=== PATIENT | male | born 1980 | race Caucasian/White ===

== ENCOUNTER 2016-09-16 17:50 | Emergency (ER) | payer MEDICAID, OTHER ==
[~2016-09-16] VITALS: Ht 170.2 cm; Wt 99.8 kg
[2016-09-16 18:04] VITALS: BP 132/68
--- NOTE | 2016-09-16 18:08 | NUR ---
Patient ambulated to bed 03.
--- NOTE | 2016-09-16 18:12 | NUR ---
Dr. Bustamante evaluating patient at bedside.
--- NOTE | 2016-09-16 18:12 | NUR ---
PATIENT PRESENTS TO ED WITH throat pain , epigastric burning pain and sensation of sob . PT STATES . DENIES N/V/D; SKIN IS PINK/WARM/DRY; AAOX4 WITH EVEN AND STEADY GAIT; LUNGS CLEAR BL; HR EVEN AND REGULAR; PT DENIES ANY FEVER, CP, SOB, OR COUGH AT THIS TIME; PATIENT STATES PAIN OF 6/10 AT THIS TIME; VSS; PATIENT POSITIONED FOR COMFORT; HOB ELEVATED; BEDRAILS UP X2; BED DOWN. ER MD MADE AWARE OF PT STATUS.
[2016-09-16] MEDS ORDERED: DEXAMETHASONE 10 MG/ML VIAL IM ONE (18:15)
--- NOTE | 2016-09-16 18:23 | NUR ---
pt to x-ray via wheel chair
--- NOTE | 2016-09-16 18:37 | NUR ---
Patient back from CT/XRAY via wheelchair per tech.
--- NOTE | 2016-09-16 18:38 | NUR ---
returned from x-ray
--- NOTE | 2016-09-16 19:14 | NUR ---
Patient discharged with v/s stable. Written and verbal after care instructions given and explained. Patient alert, oriented and verbalized understanding of instructions. Ambulatory with steady gait. All questions addressed prior to discharge. ID band removed. Patient advised to follow up with PMD. Rx of clindamycin given. Patient educated on indication of medication including possible reaction and side effects. Opportunity to ask questions provided and answered.
[2016-09-16 19:15] VITALS: BP 128/88
== END 2016-09-16 19:14 | disposition home or self-care (01) ==
LOC: MED 17:50
DX: R06.00 Dyspnea, unspecified (principal); R03.0 Elevated blood-pressure reading, without diagnosis of hypertension; J02.9 Acute pharyngitis, unspecified; F17.210 Nicotine dependence, cigarettes, uncomplicated; Z71.6 Tobacco abuse counseling; Z88.0 Allergy status to penicillin; Z88.1 Allergy status to other antibiotic agents
CPT/HCPCS: 70490; 71020; 96372; 99284; J1100

== ENCOUNTER 2016-10-18 16:19 | Emergency (ER) | payer OTHER ==
[~2016-10-18] VITALS: Ht 170.2 cm; Wt 99.4 kg
[2016-10-18 16:38] VITALS: BP 145/79
--- NOTE | 2016-10-18 16:56 | NUR ---
Patient ambulated to TF03. SUPERINTENDENT SEED MILL evaluating patient at bedside.
--- NOTE | 2016-10-18 17:18 | NUR ---
Patient being evaluated by physician assistant manager trainee Stephen in triage.
--- NOTE | 2016-10-18 17:24 | NUR ---
36/M PRESENT TO ER C/O THROAT PAIN x2 MONTHS. PT STATES S/SX STARTED 2 MONTHS, DENIES INJURY OR TRAUMA. PT DENIES NVD. PT HAS UPCOMING APPOINTMENT WITH ENT SPECIALIST. PAIN 4/10 ACHING RADIATING TO UPPER THROAT. AAOx4, PERRLA, BREATHING EVEN AND UNLABORED. ERMD NOTIFIED OF PATIENT STATUS.
[2016-10-18 17:45] VITALS: BP 126/94
--- NOTE | 2016-10-18 17:45 | NUR ---
Chart checked and completed. The patient's care was reviewed and supervised by Tara Craig RN.
--- NOTE | 2016-10-18 17:45 | NUR ---
Patient discharged with v/s stable. Written and verbal after care instructions given and explained. Patient verbalized understanding. Ambulatory with steady gait. All questions addressed prior to discharge. Advised to follow up with PMD.
== END 2016-10-18 17:45 | disposition home or self-care (01) ==
LOC: MED 16:19
DX: Z00.00 Encounter for general adult medical examination without abnormal findings (principal); Z88.0 Allergy status to penicillin; Z88.1 Allergy status to other antibiotic agents

== ENCOUNTER 2019-06-19 17:01 | Emergency (ER) | payer SELFPAY ==
[~2019-06-19] VITALS: Ht 170.2 cm; Wt 93.4 kg
[2019-06-19 17:05] VITALS: BP 141/67
--- NOTE | 2019-06-19 17:13 | NUR ---
PT TO BED 1 WITH STEADY GAIT
[2019-06-19] MEDS ORDERED: LIDOCAINE MPF 1% 10 MG/ML VIAL INJ ONE (17:15)
--- NOTE | 2019-06-19 17:30 | NUR ---
elver dotson at bedside doin procedure.
--- NOTE | 2019-06-19 17:35 | NUR ---
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 PT AWAKE ,ALERT ,AMBULATORY . ABLE TO MOVE AFFECTED DIGIT NO ACTIVE BLEEDING. PMH- ASTHMA, CARPAL TUNNEL
[2019-06-19 18:30] VITALS: BP 141/67
--- NOTE | 2019-06-19 18:30 | NUR ---
Patient discharged with v/s stable. Written and verbal after care instructions given and explained regarding laceration. Patient alert, oriented and verbalized understanding of instructions. Ambulatory with steady gait. All questions addressed prior to discharge. ID band removed. Patient advised to follow up with PMD. Rx of bactrin and bacitracin given. Patient educated on indication of medication including possible reaction and side effects. Opportunity to ask questions provided and answered.pt didnot wait for dressing to be put in.
== END 2019-06-19 18:30 | disposition home or self-care (01) ==
LOC: MED 17:01
DX: S61.412A Laceration without foreign body of left hand, initial encounter (principal); J45.909 Unspecified asthma, uncomplicated; Z88.0 Allergy status to penicillin; Z88.1 Allergy status to other antibiotic agents; W26.8XXA Contact with other sharp object(s), not elsewhere classified, initial encounter; Y93.89 Activity, other specified; Y92.89 Other specified places as the place of occurrence of the external cause; Y99.8 Other external cause status
CPT/HCPCS: 12001; 90471; 90715; 99283; J2001